=== PATIENT | female | born 1965 | race African-American/Black ===

== ENCOUNTER 2016-05-01 13:12 | Inpatient (IN) | payer OTHER ==
[~2016-05-01] VITALS: Ht 152.4 cm; Wt 57.6 kg
[~2016-05-01 13:12] MED LIST: GLIPIZIDE; METFORMIN PO; PHENOBARBITOL PO
[2016-05-01 14:51] LABS: BASOPHILS % 0.9 % (0.0-2.0); EOSINOPHILS % 0.1 % (0.0-5.0); HEMOGLOBIN. 11.8 g/dL (12.0-16.0); LYMPHOCYTES % 11.9 % (20.0-50.0); MEAN CORPUSCULAR HEMOGLOBIN 32.3 pg (28.0-32.0); MEAN CORPUSCULAR HGB CONC 33.6 g/dL (31.0-37.0); MEAN CORPUSCULAR VOLUME 96.1 fL (81.0-99.0); MEAN PLATELET VOLUME 8.8 fl (7.4-10.4); MONOCYTES % 8.7 % (2.0-8.0); NEUTROPHILS % 78.4 % (40.0-76.0); PLATELET 195 x1000/uL (130-400); RED BLOOD CELL COUNT 3.64 mill/uL (4.2-5.4); RED CELL DISTRIBUTION WIDTH 18.5 % (11.6-14.6); WHITE BLOOD COUNT 7.9 x1000/uL (4.5-11.0)
[2016-05-01 15:00] LABS: INR 1.2; PROTHROMBIN TIME 12.2 sec
[2016-05-01 15:05] LABS: ALANINE AMINOTRANSFERASE 61 IU/L (13-61); ALBUMIN 3.4 g/dL (3.4-5.0); ANION GAP 20; CALCIUM 7.2 mg/dL (8.5-10.1); CARBON DIOXIDE 28 mEq/L (21-32); CHLORIDE 91 mEq/L (98-107); ETHANOL BLOOD < 10 mg/dL; INDEX HEMOLYSI 2 (1-3); INDEX ICTERIC 1 (1-4); INDEX LIPEMIC 1 (1-3); UREA NITROGEN BLOOD 7 mg/dL (7-21); eGFR > 60 mL/min (>60)
[2016-05-01] MEDS ORDERED: SODIUM CHLORIDE 0.9% 1,000 ML IV ONE (15:38)
[2016-05-01] MEDS ORDERED: POTASSIUM CHLORIDE 20MEQ TABLET SR PO ONE (15:45)
[2016-05-01] MEDS ORDERED: KCL 10MEQ/50ML PREMIX 100 ML IV SCH (15:45)
[2016-05-01] MEDS ORDERED: KCL 20MEQ/100ML PREMIX 100 ML IV NR (16:00)
[2016-05-01 16:32] LABS: *AMPHETAMINES SCREEN URINE NEGATIVE (NEGATIVE); *BARBITURATES SCREEN URINE NEGATIVE (NEGATIVE); *BENZODIAZEPINES SCREEN URINE NEGATIVE (NEGATIVE); *COCAINE SCREEN URINE NEGATIVE (NEGATIVE); CANNABINOID URINE SCREEN PRESUMTIVE POSITIVE (NEGATIVE); ECSTASY MDMA SCREEN URINE NEGATIVE (NEGATIVE); METHADONE URINE SCREEN NEGATIVE (NEGATIVE); OPIATES URINE SCREEN NEGATIVE (NEGATIVE); PHENCYCLIDINE URINE SCREEN NEGATIVE (NEGATIVE)
[2016-05-01 16:35] LABS: CLARITY URINE CLEAR (CLEAR); COLOR URINE YELLOW (YELLOW); GLUCOSE URINE NEGATIVE (NEGATIVE); KETONES URINE TRACE (NEGATIVE); LEUKOCYTE ESTERASE URINE NEGATIVE (NEGATIVE); NITRITE URINE NEGATIVE (NEGATIVE); OCCULT BLOOD URINE NEGATIVE (NEGATIVE); PROTEIN URINE NEGATIVE (NEGATIVE); SPECIFIC GRAVITY URINE 1.007 (1.005-1.030)
[2016-05-01] MEDS ORDERED: GLYB5TAB7 PO (20:16)
[2016-05-01] MEDS ORDERED: PHEN100C4 PO (20:21)
[2016-05-01] MEDS ORDERED: phenobarbital (20:21)
[2016-05-01 20:24] VITALS: BP 158/102
[2016-05-01] MEDS ORDERED: DEXTROSE 50% WATER 50ML SYRINGE IV PRN (22:15)
[2016-05-02] VITALS: BP 148/92
[2016-05-02] MEDS ORDERED: CLONIDINE 0.1MG TABLET PO PRN
[2016-05-02] MEDS: ZOLPIDEM TARTRATE 5MG TABLET PO PRN ×2 (00:43→20:42)
[2016-05-02 04:00] VITALS: BP 152/92
[2016-05-02 05:27] LABS: BASOPHILS % 0.6 % (0.0-2.0); EOSINOPHILS % 0.8 % (0.0-5.0); HEMOGLOBIN. 11.2 g/dL (12.0-16.0); LYMPHOCYTES % 25.7 % (20.0-50.0); MEAN CORPUSCULAR HEMOGLOBIN 32.7 pg (28.0-32.0); MEAN CORPUSCULAR HGB CONC 33.8 g/dL (31.0-37.0); MEAN CORPUSCULAR VOLUME 96.7 fL (81.0-99.0); MEAN PLATELET VOLUME 8.4 fl (7.4-10.4); NEUTROPHILS % 62.9 % (40.0-76.0); PLATELET 178 x1000/uL (130-400); RED BLOOD CELL COUNT 3.42 mill/uL (4.2-5.4); RED CELL DISTRIBUTION WIDTH 18.9 % (11.6-14.6); WHITE BLOOD COUNT 6.4 x1000/uL (4.5-11.0)
[2016-05-02 05:51] LABS: CALCIUM 6.7 mg/dL (8.5-10.1); CHLORIDE 98 mEq/L (98-107); INDEX HEMOLYSI 1 (1-3); INDEX ICTERIC 1 (1-4); INDEX LIPEMIC 1 (1-3)
[2016-05-02 05:57] LABS: ANION GAP 15; CARBON DIOXIDE 30 mEq/L (21-32); MAGNESIUM 1.3 mg/dL (1.8-2.4); eGFR > 60 mL/min (>60)
[2016-05-02] MEDS: BLOOD SUGAR DIAGNOSTIC STRIP TEST SCH ×4 (06:10→20:42)
[2016-05-02] MEDS: INSULIN LISPRO 100 UNITS/ML SUBCUT SCH ×4 (06:16→20:42)
[2016-05-02 06:47] LABS: UREA NITROGEN BLOOD 3 mg/dL (7-21)
[2016-05-02 08:00] VITALS: BP 142/92
[2016-05-02] MEDS: PHENYTOIN SODIUM EXTENDED 100MG CAPSULE PO SCH ×3 (09:44→17:26)
[2016-05-02] MEDS: METFORMIN HCL 500MG TABLET PO SCH ×2 (09:45→17:26)
[2016-05-02] MEDS: PHENOBARBITAL 30 MG TABLET PO SCH ×2 (09:45→17:26)
[2016-05-02] MEDS: GLYBURIDE 5MG TABLET PO SCH ×2 (09:45→17:26)
[2016-05-02] MEDS: AMLODIPINE 5MG TABLET PO SCH (09:45)
[2016-05-02 12:00] VITALS: BP 157/105
[2016-05-02] MEDS ORDERED: POTASSIUM CHLORIDE 20MEQ TABLET SR PO NR ×2 (12:30→17:00)
[2016-05-02] MEDS ORDERED: MAGNESIUM OXIDE 400MG TABLET PO NR (13:30)
[2016-05-02 16:00] VITALS: BP 146/94
[2016-05-02 16:09] LABS: HEPATITIS B SURFACE ANTIGEN NEGATIVE
[2016-05-02 16:37] LABS: HEPATITIS C VIR.AB 0.15 INDEXVAL (0.00-0.80)
[2016-05-02 16:38] LABS: HEPATITIS B CORE AB IGM NEGATIVE
[2016-05-02 16:39] LABS: HEPATITIS A AB IGM NEGATIVE (NEGATIVE)
[2016-05-02 20:00] VITALS: BP 157/112
[2016-05-02] MEDS: BRIMONIDINE 0.2% OPHTH DROPS 5ML EACHEYE SCH (20:42)
[2016-05-03] VITALS: BP 137/93
[2016-05-03] MEDS: BRIMONIDINE 0.2% OPHTH DROPS 5ML EACHEYE SCH ×3 (03:53→20:40)
[2016-05-03 04:00] VITALS: BP 131/92
[2016-05-03 06:03] LABS: BASOPHILS % 0.6 % (0.0-2.0); EOSINOPHILS % 0.8 % (0.0-5.0); HEMOGLOBIN. 12.3 g/dL (12.0-16.0); LYMPHOCYTES % 25.1 % (20.0-50.0); MEAN CORPUSCULAR HEMOGLOBIN 32.5 pg (28.0-32.0); MEAN CORPUSCULAR HGB CONC 33.2 g/dL (31.0-37.0); MEAN CORPUSCULAR VOLUME 97.7 fL (81.0-99.0); MEAN PLATELET VOLUME 8.5 fl (7.4-10.4); NEUTROPHILS % 64.5 % (40.0-76.0); PLATELET 225 x1000/uL (130-400); RED BLOOD CELL COUNT 3.79 mill/uL (4.2-5.4); RED CELL DISTRIBUTION WIDTH 19.1 % (11.6-14.6); WHITE BLOOD COUNT 9.5 x1000/uL (4.5-11.0)
[2016-05-03] MEDS: BLOOD SUGAR DIAGNOSTIC STRIP TEST SCH ×4 (06:14→20:45)
[2016-05-03] MEDS: INSULIN LISPRO 100 UNITS/ML SUBCUT SCH ×4 (06:16→22:09)
[2016-05-03 06:36] LABS: CHLORIDE 100 mEq/L (98-107); INDEX HEMOLYSI 2 (1-3); INDEX ICTERIC 1 (1-4); INDEX LIPEMIC 1 (1-3)
[2016-05-03 06:54] LABS: ANION GAP 16; CALCIUM 7.3 mg/dL (8.5-10.1); CARBON DIOXIDE 27 mEq/L (21-32); MAGNESIUM 1.5 mg/dL (1.8-2.4); eGFR > 60 mL/min (>60)
[2016-05-03 06:55] LABS: UREA NITROGEN BLOOD 2 mg/dL (7-21)
[2016-05-03] MEDS ORDERED: POTASSIUM CHLORIDE 20MEQ TABLET SR PO NR (07:51)
[2016-05-03 08:00] VITALS: BP 143/103
[2016-05-03] MEDS ORDERED: MAGNESIUM 2 G PREMIX 50 ML IV SCH (09:00)
[2016-05-03] MEDS: METFORMIN HCL 500MG TABLET PO SCH ×2 (09:18→17:40)
[2016-05-03] MEDS: PHENOBARBITAL 30 MG TABLET PO SCH ×2 (09:18→17:40)
[2016-05-03] MEDS: GLYBURIDE 5MG TABLET PO SCH ×2 (09:18→17:40)
[2016-05-03] MEDS: PHENYTOIN SODIUM EXTENDED 100MG CAPSULE PO SCH ×3 (09:18→17:40)
[2016-05-03] MEDS: AMLODIPINE 5MG TABLET PO SCH (09:19)
[2016-05-03 12:00] VITALS: BP 144/89
[2016-05-03 16:00] VITALS: BP 152/91
[2016-05-03 20:00] VITALS: BP 158/94
[2016-05-03] MEDS: ZOLPIDEM TARTRATE 5MG TABLET PO PRN (22:08)
[2016-05-04] VITALS: BP 133/83
[2016-05-04] MEDS: BRIMONIDINE 0.2% OPHTH DROPS 5ML EACHEYE SCH ×2 (03:57→12:00)
[2016-05-04 04:00] VITALS: BP 149/89
[2016-05-04 05:50] LABS: BASOPHILS % 0.6 % (0.0-2.0); EOSINOPHILS % 0.6 % (0.0-5.0); HEMATOCRIT. 36.3 % (36.0-48.0); LYMPHOCYTES % 27.5 % (20.0-50.0); MEAN CORPUSCULAR HEMOGLOBIN 32.6 pg (28.0-32.0); MEAN CORPUSCULAR HGB CONC 33.2 g/dL (31.0-37.0); MEAN CORPUSCULAR VOLUME 98.4 fL (81.0-99.0); MEAN PLATELET VOLUME 8.8 fl (7.4-10.4); MONOCYTES % 9.3 % (2.0-8.0); PLATELET 249 x1000/uL (130-400); RED BLOOD CELL COUNT 3.69 mill/uL (4.2-5.4); RED CELL DISTRIBUTION WIDTH 19.4 % (11.6-14.6); WHITE BLOOD COUNT 9.2 x1000/uL (4.5-11.0)
[2016-05-04 06:12] LABS: ANION GAP 13; CALCIUM 8.3 mg/dL (8.5-10.1); CARBON DIOXIDE 32 mEq/L (21-32); CHLORIDE 98 mEq/L (98-107); INDEX HEMOLYSI 1 (1-3); INDEX ICTERIC 1 (1-4); INDEX LIPEMIC 1 (1-3)
[2016-05-04 06:13] LABS: MAGNESIUM 2.1 mg/dL (1.8-2.4); PHOSPHORUS 3.3 mg/dL (2.5-4.9); eGFR > 60 mL/min (>60)
[2016-05-04] MEDS: BLOOD SUGAR DIAGNOSTIC STRIP TEST SCH ×2 (06:45→11:45)
[2016-05-04 06:51] LABS: UREA NITROGEN BLOOD 3 mg/dL (7-21)
[2016-05-04] MEDS: INSULIN LISPRO 100 UNITS/ML SUBCUT SCH ×2 (07:15→12:15)
[2016-05-04 08:00] VITALS: BP 154/97
[2016-05-04] MEDS: PHENOBARBITAL 30 MG TABLET PO SCH (08:20)
[2016-05-04] MEDS: PHENYTOIN SODIUM EXTENDED 100MG CAPSULE PO SCH ×2 (08:20→13:00)
[2016-05-04] MEDS: GLYBURIDE 5MG TABLET PO SCH (08:21)
[2016-05-04] MEDS: AMLODIPINE 5MG TABLET PO SCH (08:21)
[2016-05-04] MEDS: METFORMIN HCL 500MG TABLET PO SCH (08:21)
[2016-05-04] MEDS ORDERED: POTASSIUM CHLORIDE 20MEQ TABLET SR PO SCH (09:00)
[2016-05-04 12:00] VITALS: BP 156/117
== END 2016-05-04 14:00 | disposition left against medical advice (07) | DRG 425 ==
LOC: ER 13:24 → 5WST 16:29
PROVIDERS: ADMIT Internal Medicine; ATTEND Internal Medicine
DX: E87.6 Hypokalemia (principal); E83.42 Hypomagnesemia; I10 Essential (primary) hypertension; E11.9 Type 2 diabetes mellitus without complications; D64.9 Anemia, unspecified; F12.90 Cannabis use, unspecified, uncomplicated; H40.9 Unspecified glaucoma; J45.909 Unspecified asthma, uncomplicated; G40.909 Epilepsy, unspecified, not intractable, without status epilepticus; Z53.21 Procedure and treatment not carried out due to patient leaving prior to being seen by health care provider; Z98.890 Other specified postprocedural states
CPT/HCPCS: 36415; 70450; 70551; 80048; 80053; 80305; 81003; 82962; 83036; 83735; 83930; 84100; 84133; 85025; 85610; 86705; 86709; 86803; 87340; 93005; 93971; 96360; 96361; 99285; G0482; J1815; J3475; J3480; J7030; J7040; J7050